=== PATIENT | female | born 1980 | race Caucasian/White ===

== ENCOUNTER 2017-01-13 01:34 | Emergency (ER) | payer OTHER, BC ==
[~2017-01-13 01:34] MED LIST: BENTYL10 PO; CLORTIMAZOLE TOP; LEXAPRO20 PO; PAMPRIN PO; PRILO PO; VIST25 PO; [UNRECOGNIZED DRUG - OTHER] PO
== END 2017-01-13 01:54 | disposition home or self-care (01) ==
LOC: ER 01:34
DX: S29.012A Strain of muscle and tendon of back wall of thorax, initial encounter (principal); R51 Headache; F41.9 Anxiety disorder, unspecified; Z98.84 Bariatric surgery status; Z88.6 Allergy status to analgesic agent; Z88.8 Allergy status to other drugs, medicaments and biological substances; Z91.040 Latex allergy status; Z91.018 Allergy to other foods; Z79.899 Other long term (current) drug therapy; X58.XXXA Exposure to other specified factors, initial encounter
CPT/HCPCS: 72072; 96372; 99284; A9270-GY; J2360

== ENCOUNTER 2017-03-20 01:39 | Emergency (ER) | payer BC, OTHER | END 2017-03-20 02:45 | disposition home or self-care (01) | LOC: ER 01:39 | DX: S93.402A Sprain of unspecified ligament of left ankle, initial encounter (principal); S93.602A Unspecified sprain of left foot, initial encounter; Z88.6 Allergy status to analgesic agent; Z91.040 Latex allergy status; Z91.018 Allergy to other foods; Z79.899 Other long term (current) drug therapy; W22.8XXA Striking against or struck by other objects, initial encounter | CPT/HCPCS: 73610-LT; 73630-LT; 99283 ==